=== PATIENT | female | born 1980 | race Hispanic/Latino ===

== ENCOUNTER 2018-09-02 10:13 | Emergency (ER) | payer MEDICAID | END 2018-09-02 11:06 | disposition home or self-care (01) | LOC: EDH 10:13 | DX: Z00.00 Encounter for general adult medical examination without abnormal findings (principal); Z98.51 Tubal ligation status; Z98.890 Other specified postprocedural states | CPT/HCPCS: 99281 ==

== ENCOUNTER 2021-12-28 18:15 | Emergency (ER) | payer MEDICAID ==
[~2021-12-28] VITALS: Ht 157.5 cm; Wt 72.6 kg
[2021-12-28 18:42] LABS: BASOPHILS % (AUTO) 0.6 % (0.0-5.0); EOSINOPHILS % (AUTO) 1.2 % (0.0-8.0); HEMATOCRIT 39.1 % (36-48); LYMPHOCYTES % (AUTO) 39.1 % (21.0-51.0); MEAN CORPUSCULAR HEMOGLOBIN 29.8 pg (27.0-33.0); MEAN CORPUSCULAR VOLUME 87.5 fL (79-99); MONOCYTES % (AUTO) 7.7 % (3.0-13.0); PLATELET COUNT (AUTO) 341 K/uL (130-400); RED BLOOD CELL COUNT(AUTO) 4.47 MIL/uL (4.00-5.50); RED CELL DISTRIBUTION WIDTH 12.7 % (11.0-15.5); WHITE BLOOD COUNT (AUTO) 9.1 K/uL (4.8-10.8)
[2021-12-28 18:43] LABS: APPEARANCE,URINE Clear (CLEAR); BILIRUBIN,URINE Negative (NEGATIVE); COLOR,URINE Yellow (YELLOW); GLUCOSE, URINE (UA) Negative (NEGATIVE); KETONES,URINE Negative (NEGATIVE); LEUKOCYTE ESTERASE ,URINE Negative (NEGATIVE); NITRATE,URINE Negative (NEGATIVE); OCCULT BLOOD,URINE Negative (NEGATIVE); PROTEIN,URINE Negative (NEGATIVE); UROBILINOGEN,URINE 0.2 mg/dL (0.2-1.0)
[2021-12-28 18:55] LABS: CREATININE 0.7 mg/dL (0.5-1.5); POTASSIUM 3.4 mmol/L (3.5-5.1)
[2021-12-28] MEDS ORDERED: 0.9%NACL 1000ML 1,000 ML IV ONE (19:00)
[2021-12-28 19:13] LABS: ALBUMIN 3.7 g/dL (3.5-5.0); BILIRUBIN,TOTAL 0.5 mg/dL (0.2-1.0); TOTAL PROTEIN, SERUM 7.9 g/dL (6.0-8.3)
[2021-12-28] MEDS ORDERED: KETOROLAC 30MG VIAL (30MG/ML) IVP ONE (20:30)
[2021-12-28] MEDS ORDERED: ACET-2079 PO (21:16)
[2021-12-28] MEDS ORDERED: DOXY-336 PO (21:16)
[2021-12-28] MEDS ORDERED: ONDA4TAB10 PO (21:16)
[2021-12-28] MEDS ORDERED: CEFTRIAXONE 500MG VIAL IV SCH (21:30)
[2021-12-28] MEDS ORDERED: DOXYCYCLINE HYCLATE 100 MG TABLET PO SCH (21:30)
[2021-12-28 21:32] VITALS: BP 107/63
== END 2021-12-28 21:41 | disposition home or self-care (01) ==
LOC: EDH 18:15
DX: N71.9 Inflammatory disease of uterus, unspecified (principal); Z79.1 Long term (current) use of non-steroidal anti-inflammatories (NSAID)
CPT/HCPCS: 36415; 76830; 80053; 81003; 83690; 84702; 85025; 96361; 96374; 96375; 99284; J0696; J1885

== ENCOUNTER 2024-06-18 10:51 | Emergency (ER) | payer MEDICAID, OTHER ==
[~2024-06-18] VITALS: Ht 157.5 cm; Wt 67.6 kg
[~2024-06-18 10:51] MED LIST: ACET-2079 PO; CYCL5TAB3 PO; DOXY100C61 PO; NAPR-1084 PO; ONDA-243 PO
--- NOTE | 2024-06-18 11:13 | ERN ---
ED Note History of Present Illness Stated Complaint: accedental took wrong med Chief Complaint: Other Problems Time Seen by MD: 10:57 Dictation: PATIENT IS A 43-YEAR-OLD FEMALE HERE WITH COMPLAINTS OF FEELING ANXIOUS AFTER SHE TOOK HER SON'S RITALIN LA 30 MG AT 07:30 THIS MORNING. SHE STATES SHE WAS MEDICATED HIM AND MEDICATING HERSELF FOR HER MORNING MEDS, ACCIDENTALLY TRANSPOSED THE TWO MEDICATIONS AND TOOK THE RITALIN. SHE STATES IT WAS PURELY ACCIDENTAL DENIES ANY HOMICIDAL OR SUICIDAL IDEATION. THERE WAS NO CHEST PAIN NO BACK PAIN STATES HER MOUTH FEELS DRY. SPOKE WITH CIERRA AT [facility], DISCUSSED CASE WITH HIM INCLUDING THE VITAL SIGNS. HE SAID THERE IS NO ADMISSIBLE CRITERIA AT THIS TIME AND NO AND HE GO TO REVERSED RITALIN INGESTION. HE STATES IF SHE WOULD HAVE CALLED THE [facility] HE WOULD ADVISED HER TO STAY HOME. Allergies: Coded Allergies: No Known Drug Allergies (Unverified Allergy, Unknown, 12/28/21) Home Meds Active Scripts Cyclobenzaprine HCl (Cyclobenzaprine HCl) 5 Mg Tablet, 5 MG PO nightly for 7 Days, #7 TAB Prov:MONIK MOSQUEDA MD 10/09/22 Naproxen Sodium (Naproxen Cr) 500 Mg Tbmp.24hr, 500 MG PO BID PRN for PAIN LEVEL 1 TO 5 for 7 Days, #14 TAB.SR Prov:MONIK MOSQUEDA MD 10/09/22 Doxycycline Monohydrate (Doxycycline Monohydrate) 100 Mg Capsule, 1 CAP PO BID for 10 Days, #20 CAP 0 Refills Prov:DAMARIS XIAO MD 12/28/21 Ondansetron (Ondansetron Odt) 4 Mg Tab.rapdis, 4 MG PO TIDP PRN for NAUSEA/VOMITING, #12 TAB 0 Refills Prov:DAMARIS XIAO MD 12/28/21 Acetaminophen with Codeine (Acetaminophen-Cod #3 Tablet) 1 Each Tablet, 1 TAB PO Q6H PRN for SEVERE PAIN (7-10), #12 TAB 0 Refills Prov:DAMARIS XIAO MD 12/28/21 Past Medical History Past Medical History: GERD Additional Past Medical Hx: ENDOMETRIOSIS, OVERIAN CYSTS, Surgical History: Hysterectomy Social History: Negative, Other History: Not Applicable RN Note Reviewed/Agreed w/PFSH: Yes Review of System Dictation CONSTITUTIONAL: NEGATIVE EXCEPT FOR HPI ANXIETY HEAD/FACE: NEGATIVE EXCEPT FOR HPI EENT: NEGATIVE EXCEPT FOR HPI DRY MOUTH RESPIRATORY: NEGATIVE EXCEPT FOR HPI GASTROINTESTINAL/ABDOMINAL: NEGATIVE EXCEPT FOR HPI GENITOURINARY: NEGATIVE EXCEPT FOR HPI MUSCULOSKELETAL: NEGATIVE EXCEPT FOR HPI INTEGUMENTARY: NEGATIVE EXCEPT FOR HPI NEUROLOGICAL/PSYCH: NEGATIVE EXCEPT FOR HPI HEMATOLOGIC/LYMPHATIC: NEGATIVE EXCEPT FOR HPI ALL SYSTEMS NEGATIVE, EXCEPT NOTED ABOVE. 13 POINT REVIEW OF SYSTEMS ASSESSED AND ALL NEGATIVE EXCEPT FOR ABOVE. Initial Vital Sign VS Vital Signs Date Time Temp Pulse Resp B/P (MAP) Pulse Ox O2 Delivery O2 Flow Rate FiO2 06/18/24 11:21 98.8 75 20 118/81 100 Room Air* 0 21 Physical Exam Dictation VITAL SIGNS REVIEWED GENERAL APPEARANCE: ALERT, ORIENTED X 3, MILD ANXIETY, WELL DEVELOPED, NOURISHED. HEAD AND FACE: NON-TRAUMATIC. EYES: PERRL, PINK CONJUNCTIVAS, EYELID NO TRAUMA, ANTERIOR CHAMBER WITH ARCUS SENILIS. EARS: PINNAS INTACT AND NO SIGNS OF TRAUMA OR ERYTHEMA EAR CANALS CLEAR AND NO DISCHARGE TM NO ERYTHEMA NOSE: NO DISCHARGE, NO BLEEDING. OROPHARYNX: MOUTH NORMAL, TONGUE PINK, PHARYNX CLEAR,NO ERYTHEMA, TONSILS NO EXUDATES, NO ABSCESSES NOTED, MUCOUS MEMBRANE MOIST NECK: SUPPLE, NON-TENDER, NO THYROMEGALY, NO MASSES, NO JVD, NO BRUITS BREAST:DEFERRED CHEST:NO TENDERNESS, NO CREPITUS, NO PARADOXICAL MOVEMENT, NO RETRACTIONS LUNGS:CLEAR, WELL-VENTILATED, SYMMETRIC, NO RALES, NO WHEEZING, NO RHONCHI, NO STRIDOR, GOOD BREATH SOUNDS BILATERALLY HEART: REGULAR RATE, REGULAR RHYTHM, NO MURMUR, NO GALLOPS VASCULAR: NO PERIPHERAL EDEMA, ABDOMEN: SOFT, POSITIVE BOWEL SOUNDS, NONDISTENDED, NO GUARDING, NONTENDER, NO REBOUND, NO MASSES NO HEPATOMEGALY, NO SPLENOMEGALY, NO PIERRE'S SIGN, NO HERNIAS. RECTAL: DEFERRED GENITAL: DEFERRED NEUROLOGICAL: NORMAL SPEECH, MOTOR FUNCTION INTACT, SENSORY FUNCTION INTACT MUSCULOSKELETAL: NECK NONTENDER, FULL RANGE OF MOTION, BACK NONTENDER, FULL RANGE OF MOTION, EXTREMITIES: NONTENDER, FULL RANGE OF MOTION SKIN: COLOR PINK, DRY, NO TURGOR, NO RASH, NO LACERATIONS, NO ABRASIONS, NO CONTUSIONS. LYMPHATIC: DEFERRED Results (Laboratory/Radiology) Labs Reviewed?: Yes ED Course ED Course Orders Procedure Category Date Status Time Lorazepam 1 Mg PHA 06/18/24 Complete (Ativan) 11:30 Current Medications Medications (Trade) Dose Ordered Sig/Gera Route PRN Reason Start Time Stop Time Status Last Admin Dose Admin Lorazepam (AtiVAN) 1 mg ONCE ONCE PO 06/18/24 11:30 06/18/24 11:31 DC 06/18/24 11:19 Vital Signs Date Time Temp Pulse Resp B/P (MAP) Pulse Ox O2 Delivery O2 Flow Rate FiO2 06/18/24 12:21 98.1 71 18 121/79 100 Room Air* 0 21 06/18/24 11:21 98.8 75 20 118/81 100 Room Air* 0 21 ELEVEN 10, PATIENT WAS REASSURED THAT SHE WILL BE OKAY AND THAT SHE IS HEMODYNAMICALLY STABLE. SHE IS AWARE THAT BECAUSE THE DRUG IS LONG ACTING, SHE COULD HAVE THE EFFECTS OF THE DRUG FOR SEVERAL HOURS WE WILL PROVIDE AN ATIVAN1 MG P.O. NOW FOR ANXIETY, HER WILL PICK HER UP AND TAKE HER HOME. SHE WAS TOLD TO FOLLOW UP WITH HER PRIMARY CARE DOCTOR IN THE NEXT 1-2 DAYS FOR MANAGEMENT Medical Decision Making MDM MEDICAL DISCHARGE MAKING BASED ON NOTIFYING [facility] OF ACCIDENTAL INGESTION. NO INTERVENTIONS REQUIRED AT THIS TIME. PATIENT GIVEN ATIVAN1 MG P.O. TO [facility]. INFORMED TO FOLLOW UP WITH HER PRIMARY CARE DOCTOR DX & DISP Disposition: Discharge Departure Impression: Primary Impression: Accidental drug ingestion Condition: Stable Additional Instructions: FOLLOW-UP WITH PRIMARY CARE PROVIDER IN 1 TO 2 DAYS. TAKE MEDICATIONS DIRECTED HERE IN THE EMERGENCY ROOM. OKAY TO CONTINUE HOME MEDICATIONS UNLESS OTHERWISE DISCUSSED DURING YOUR VISIT IN THE EMERGENCY ROOM TODAY. RETURN TO YOUR NEAREST EMERGENCY ROOM IF SYMPTOMS WORSEN OR IF THERE IS NO IMPROVEMENT. CALL 911 IF YOU NEED IMMEDIATE ASSISTANCE. TAKE TYLENOL OR MOTRIN AWMA-BOG-OXMCKIT NEEDED AND IF NO CONTRAINDICATIONS ARE PRESENT. INCREASE ORAL HYDRATION. A WOUND CULTURE OR URINE CULTURE WAS ORDERED HERE IN THE EMERGENCY ROOM DEPARTMENT PLEASE FOLLOW-UP WITH PRIMARY CARE PROVIDER AND ADVISE THEM TO GET REPEAT PORTS FROM OUR FACILITY. IF YOU HAD ANY MISBAH WRAP/SPLINTS THAT WERE APPLIED HERE, PLEASE DO NOT REMOVE THEM UNTIL YOU SEE YOUR PRIMARY CARE OR SPECIALTY. DIET AND ACTIVITY TOLERATED, FOLLOW UP WITH YOUR PRIMARY CARE DOCTOR GUILHERME BRAUN. Referrals: BRENDA ADAMS MD (PCP) Time of Disposition: 11:12 I have reviewed the case, and I agree with, Diagnosis and Plan I performed this substantive portion of this visit. I have reviewed and personally made and approve the management plan that is documented in the note by myself or the KAMI. I acknowledge full responsibility for the patient's management plan. KARINA VALDEZ NP Jun 18, 2024 11:13 RENA PANTOJA MD Jun 18, 2024 16:27
[2024-06-18] MEDS: LORazepam 1 MG TABLET PO ONE (11:19)
[2024-06-18 12:21] VITALS: BP 121/79; PULSE 71; RESP 18; TEMP 98.1; O2SAT 100
== END 2024-06-18 12:28 | disposition home or self-care (01) ==
LOC: EDH 10:51
DX: T43.631A Poisoning by methylphenidate, accidental (unintentional), initial encounter (principal); K21.9 Gastro-esophageal reflux disease without esophagitis; Z90.710 Acquired absence of both cervix and uterus; Y92.89 Other specified places as the place of occurrence of the external cause
CPT/HCPCS: 99283

== ENCOUNTER 2024-07-14 22:49 | Emergency (ER) | payer OTHER ==
[~2024-07-14] VITALS: Ht 157.5 cm; Wt 67.1 kg
[2024-07-14 22:50] VITALS: TEMP 98.1
[2024-07-14 23:25] LABS: APPEARANCE,URINE CLEAR (CLEAR); BILIRUBIN,URINE NEGATIVE (NEGATIVE); COLOR,URINE LIGHT-YELLOW (YELLOW); GLUCOSE, URINE (UA) NEGATIVE (NEGATIVE); KETONES,URINE NEGATIVE (NEGATIVE); LEUKOCYTE ESTERASE ,URINE NEGATIVE Leu/uL (NEGATIVE); NITRATE,URINE NEGATIVE (NEGATIVE); OCCULT BLOOD,URINE NEGATIVE (NEGATIVE); PROTEIN,URINE NEGATIVE (NEGATIVE); UROBILINOGEN,URINE 0.2 mg/dL (0.2-1.0)
[2024-07-14 23:29] LABS: ADD UA MICROSCOPIC NO
[2024-07-14 23:40] VITALS: BP 113/63; PULSE 71; RESP 18; O2SAT 97
[2024-07-14] MEDS: morPHINE 4 MG SYG IVP ONE (23:40)
[2024-07-14] MEDS: ondanSETRON 4MG INJ IVP ONE (23:40)
[2024-07-14 23:49] LABS: BASOPHILS # (AUTO) 0.05 K/uL (0.00-0.20); BASOPHILS % (AUTO) 0.4 % (0.0-5.0); EOSINOPHILS # (AUTO) 0.14 K/uL (0.00-0.70); EOSINOPHILS % (AUTO) 1.2 % (0.0-8.0); HEMATOCRIT 35.9 % (36-48); IMMATURE GRANULOCYTE ABSOLUTE 0.04 K/uL (0-1); LYMPHOCYTES # (AUTO) 3.2 K/uL (1.0-4.8); LYMPHOCYTES % (AUTO) 28.3 % (21.0-51.0); MEAN CORPUSCULAR HGB CONC 34.8 g/dL (32.0-36.0); MEAN CORPUSCULAR VOLUME 89.1 fL (79-99); MONOCYTES # (AUTO) 0.9 K/uL (0.1-1.0); MONOCYTES % (AUTO) 7.7 % (3.0-13.0); PLATELET COUNT (AUTO) 309 K/uL (130-400); RED BLOOD CELL COUNT(AUTO) 4.03 MIL/uL (4.00-5.50); RED CELL DISTRIBUTION WIDTH 12.3 % (11.0-15.5); WHITE BLOOD COUNT (AUTO) 11.4 K/uL (4.8-10.8)
[2024-07-15 00:06] LABS: CREATININE 0.8 mg/dL (0.5-1.0); POTASSIUM 3.6 mmol/L (3.5-5.1)
[2024-07-15] MEDS ORDERED: IOHEXOL-350 75 ML VIAL IV ONE (01:04)
[2024-07-15] MEDS: 0.9%NACL 1000ML 1,000 ML IV ONE (01:10)
--- NOTE | 2024-07-15 01:35 | ERN ---
ED Note History of Present Illness Stated Complaint: PELVIC PAIN Chief Complaint: Pelvic Pain Time Seen by MD: 22:52 Time Seen by Midlevel: 22:25 Dictation: The patient is a 43-year-old female with a history of hysterectomy, for right ovarian torsion who presents to the emergency department with complaints of right lower abdominal pain associated with some nausea onset a 830 p.m.. Patient denies any fevers, diarrhea. Allergies: Coded Allergies: No Known Drug Allergies (Unverified Allergy, Unknown, 12/28/21) Home Meds Active Scripts Cyclobenzaprine HCl (Cyclobenzaprine HCl) 5 Mg Tablet, 5 MG PO nightly for 7 Days, #7 TAB Prov:MONIK MOSQUEDA MD 10/09/22 Naproxen Sodium (Naproxen Cr) 500 Mg Tbmp.24hr, 500 MG PO BID PRN for PAIN LEVEL 1 TO 5 for 7 Days, #14 TAB.SR Prov:MONIK MOSQUEDA MD 10/09/22 Doxycycline Monohydrate (Doxycycline Monohydrate) 100 Mg Capsule, 1 CAP PO BID for 10 Days, #20 CAP 0 Refills Prov:DAMARIS XIAO MD 12/28/21 Ondansetron (Ondansetron Odt) 4 Mg Tab.rapdis, 4 MG PO TIDP PRN for NAUSEA/VOMITING, #12 TAB 0 Refills Prov:DAMARIS XIAO MD 12/28/21 Acetaminophen with Codeine (Acetaminophen-Cod #3 Tablet) 1 Each Tablet, 1 TAB PO Q6H PRN for SEVERE PAIN (7-10), #12 TAB 0 Refills Prov:DAMARIS XIAO MD 12/28/21 Past Medical History Past Medical History: Endometriosis, Other Additional Past Medical Hx: TORSION Surgical History: Hysterectomy Social History: Negative, Other History: Not Applicable RN Note Reviewed/Agreed w/PFSH: Yes Review of System Dictation Constitutional: Negative for fever,chills, and weight loss Eyes: Negative for injury, pain,redness, and discharge ENT: Negative for injury,pain or swelling Cardiovascular: Negative for chest pain, palpitations, and edema Respiratory: Negative for shortness of breath, cough, and wheezing, Abdomen/GI: Negative for vomiting, diarrhea, and constipation positive for right lower abdominal pain, nausea Back: Negative for injury and pain : Negative for injury, bleeding and discharge MS/Extremity: Negative for injury and deformity Skin: Negative for rash, and discoloration Neuro: Negative for headache, weakness, numbness, tingling, and seizure Psych: Negative for suicide ideation, homicidal ideation, and hallucinations Initial Vital Sign VS Vital Signs Date Time Temp Pulse Resp B/P (MAP) Pulse Ox O2 Delivery O2 Flow Rate FiO2 07/14/24 22:50 98.1 72 16 120/73 98 0 07/14/24 23:40 Room Air* 21 Physical Exam Dictation Vital Signs reviewed General Appearance: Alert, oriented x 3, no acute distress, well developed, nour ished. Head and Face: non-traumatic. Eyes: PERRL, pink conjunctivas, eyelid no trauma, anterior chamber with arcus senilis. Ears: Pinnas intact and no signs of trauma or erythema ear canals clear and no discharge TM no erythema Nose: No discharge, no bleeding. Oropharynx: Mouth normal, tongue pink. pharynx clear,no erythema, tonsils no exudates, no abscesses noted, mucous memb sandi moist Neck: Supple, non-tender, no thyromegaly, no masses, no JVD, no bruits Breast:Deferred Chest:No tenderness, no crepitus, no paradoxical movement, no retractions Lungs:Clear, well-ventilated, symmetric, no rales, no wheezing, no rhonchi, no s tridor, good breath sounds bilaterally Heart: Regular rate, regular rhythm, no murmur, no gallops Vascular: no peripheral edema, Abdomen: Soft, positive bowel sounds, nondistended, no guarding, nontender, no rebound, no masses no hepatomegaly, no splenomegaly, no Fonseca's sign, no hernias. Rectal: Deferred Genital: Deferred Neurological: Normal speech, motor function intact, sensory function intact Musculoskeletal: Neck nontender, full range of motion, back nontender, full range of motion, Extremities: nontender, full range of motion Skin: Color pink, dry, no turgor, no rash, no lacerations, no abrasions, no contusions. Lymphatic: Deferred Results (Laboratory/Radiology) Laboratory/Radiology Laboratory Tests Test 07/14/24 23:08 07/14/24 23:34 Urine Color LIGHT-YELLOW (YELLOW) Urine Appearance CLEAR (CLEAR) Urine pH 7.0 (5.0-8.0) Urine Specific [place] 1.015 (1.001-1.031) Urine Protein NEGATIVE mg/dL (NEGATIVE) Urine Glucose (UA) NEGATIVE mg/dL (NEGATIVE) Urine Ketones NEGATIVE mg/dL (NEGATIVE) Urine Occult Blood NEGATIVE (NEGATIVE) Urine Nitrate NEGATIVE (NEGATIVE) Urine Bilirubin NEGATIVE mg/dL (NEGATIVE) Urine Urobilinogen 0.2 mg/dL (0.2-1.0) Urine Leukocyte Esterase NEGATIVE [place]/uL White Blood Count 11.4 K/uL (4.8-10.8) H Red Blood Count 4.03 MIL/uL (4.00-5.50) Hemoglobin 12.5 g/dL (12.0-16.0) Hematocrit 35.9 % (36-48) L Mean Corpuscular Volume 89.1 fL (79-99) Mean Corpuscular Hemoglobin 31.0 pg (27.0-33.0) Mean Corpuscular Hemoglobin Concent 34.8 g/dL (32.0-36.0) Red Cell Distribution Width 12.3 % (11.0-15.5) Platelet Count 309 K/uL (130-400) Mean Platelet Volume 9.7 fL (7.5-10.5) Immature Granulocyte % (Auto) 0.4 % (0-1) Neutrophils (%) (Auto) 62.0 % (40.0-77.0) Lymphocytes (%) (Auto) 28.3 % (21.0-51.0) Monocytes (%) (Auto) 7.7 % (3.0-13.0) Eosinophils (%) (Auto) 1.2 % (0.0-8.0) Basophils (%) (Auto) 0.4 % (0.0-5.0) Neutrophils # (Auto) 7.0 K/uL (1.8-7.7) Lymphocytes # (Auto) 3.2 K/uL (1.0-4.8) Monocytes # (Auto) 0.9 K/uL (0.1-1.0) Eosinophils # (Auto) 0.14 K/uL (0.00-0.70) Basophils # (Auto) 0.05 K/uL (0.00-0.20) Absolute Immature Granulocyte (auto 0.04 K/uL (0-1) Nucleated Red Blood Cells 0.0 % (0.0-0.19) Sodium Level 139 mmol/L (136-145) Potassium Level 3.6 mmol/L (3.5-5.1) Chloride Level 105 mmol/L (101-111) Carbon Dioxide Level 26 mmol/L (21-32) Blood Urea Nitrogen 12 mg/dL (7-18) Creatinine 0.8 mg/dL (0.5-1.0) Glomerular Filtration Rate Calc 93 mL/min (>90) Random Glucose 98 mg/dL (70-105) Total Calcium 8.3 mg/dL (8.5-10.1) L Labs Reviewed?: Yes ED Course ED Course Orders Procedure Category Date Status Time Cbc With Differential LAB 07/14/24 Complete 23:09 Urinalysis Profile LAB 07/14/24 Complete 23:09 Basic Metabolic Panel LAB 07/14/24 Complete 23:09 Us Pelvic Non-Ob Comp US 07/14/24 Taken 23:27 Ondansetron 4mg Inj PHA 07/14/24 Complete (Zofran 4mg Inj) 23:30 Morphine 4mg Syg PHA 07/14/24 Complete (Morphine 4mg Syg) 23:30 0.9%Nacl 1000ml (Ns PHA 07/15/24 Complete 1000ml) 01:00 Ct Abdomen/Pelvis CT 07/15/24 Taken W/Contrast 00:54 Iohexol (Omnipaque) PHA 07/15/24 Complete 01:04 Current Medications Medications (Trade) Dose Ordered Sig/Gera Route PRN Reason Start Time Stop Time Status Last Admin Dose Admin Iohexol (Omnipaque) 75 ml STK-MED ONCE IV 07/15/24 01:04 07/15/24 01:05 DC Morphine Sulfate (morPHINE 4MG SYG) 4 mg ONCE ONCE IVP 07/14/24 23:30 07/14/24 23:31 DC 07/14/24 23:40 Ondansetron HCl (zoFRAN 4MG INJ) 4 mg ONCE ONCE IVP 07/14/24 23:30 07/14/24 23:31 DC 07/14/24 23:40 Sodium Chloride 1,000 ml @ 0 mls/hr ONCE ONCE IV 07/15/24 01:00 07/15/24 01:01 DC 07/15/24 01:10 Vital Signs Date Time Temp Pulse Resp B/P (MAP) Pulse Ox O2 Delivery O2 Flow Rate FiO2 07/14/24 23:40 71 18 113/63 97 Room Air* 0 21 07/14/24 22:50 98.1 72 16 120/73 98 0 Medical Decision Making MDM The patient is a 43-year-old female with a history of hysterectomy, for right ovarian torsion who presents to the emergency department with complaints of right lower abdominal pain associated with some nausea onset a 830 p.m.. Patient denies any fevers, diarrhea. CBC showed mild leukocytosis, no anemia, chemistry showed no electrolyte imbalance,urinalysis unremarkable, ct abdomen showed a no significant findings. Patient in no distress, we will be discharged to follow up with OBGYN. Differential diagnosis: Electrolyte imbalance, UTI, appendicitis, ovarian cyst Need for hospitalization: Patient does not meet criteria for hospitalization. There are no social concerns with this patient. DX & DISP Disposition: Discharge Departure Impression: Primary Impression: Pelvic pain Condition: Stable Additional Instructions: Please follow up with your PCP as soon as possible. Please return to ER if symptoms worsen. FOLLOW-UP WITH PRIMARY CARE PROVIDER IN 1 TO 2 DAYS. TAKE MEDICATIONS DIRECTED HERE IN THE EMERGENCY ROOM. OKAY TO CONTINUE HOME MEDICATIONS UNLESS OTHERWISE DISCUSSED DURING YOUR VISIT IN THE EMERGENCY ROOM TODAY. RETURN TO YOUR NEAREST EMERGENCY ROOM IF SYMPTOMS WORSEN OR IF THERE IS NO IMPROVEMENT. CALL 911 IF YOU NEED IMMEDIATE ASSISTANCE. TAKE TYLENOL OR MOTRIN [id number] NEEDED AND IF NO CONTRAINDICATIONS ARE PRESENT. INCREASE ORAL HYDRATION. A WOUND CULTURE OR URINE CULTURE WAS ORDERED HERE IN THE EMERGENCY ROOM DEPARTMENT PLEASE FOLLOW-UP WITH PRIMARY CARE PROVIDER AND ADVISE THEM TO GET REPEAT PORTS FROM OUR FACILITY. IF YOU HAD ANY MISBAH WRAP/SPLINTS THAT WERE APPLIED HERE, PLEASE DO NOT REMOVE THEM UNTIL YOU SEE YOUR PRIMARY CARE OR SPECIALTY. Referrals: JONATHON ISBELL MD (PCP) Time of Disposition: 03:16 I have reviewed the case, and I agree with, Diagnosis and Plan VICKIE MUÑOZ Jul 15, 2024 01:35
--- NOTE | 2024-07-15 08:27 | HMCIMG ---
US PELVIC NON-OB COMP REASON: right side pelvic pain COMPARISON: None TECHNIQUE: Routine abdomen sonogram was performed. FINDINGS: Uterus is absent. Left ovary is 2 x 1 x 2 cm. Right ovary was not separately and may be absent. There are no focal fluid collections. There are no focal adnexal masses. There is no free fluid in the cul-de-sac. IMPRESSION: 1. Absent uterus and right ovary. 2. No acute finding.
--- NOTE | 2024-07-15 08:29 | HMCIMG ---
CT ABDOMEN/PELVIS W/CONTRAST REASON: rigth abd pain COMPARISON: None. TECHNIQUE: Images are obtained from lung bases to the symphysis pubis following IV contrast. FINDINGS: Lung bases are clear. There are no focal liver lesions. There are normal-appearing kidneys.. Spleen and pancreas appear unremarkable. The gallbladder appears normal as well. Bowel loops appear unremarkable. This includes normal appearance of the appendix There is no evidence of free fluid or intraperitoneal air. There are no focal fluid collections. Aorta and retroperitoneum appear normal as do pelvic soft tissue structures. The anterior abdominal wall is intact. Osseous structures appear unremarkable. IMPRESSION: 1. Negative postcontrast CT abdomen and pelvis. CT was performed with one or more following dose reduction techniques: automated exposure control, adjustment of the mA and kv according to patient's size, or use of a iterative reconstruction technique.
== END 2024-07-15 03:28 | disposition home or self-care (01) ==
LOC: EDH 22:49
DX: R10.2 Pelvic and perineal pain (principal); Z79.899 Other long term (current) drug therapy; Z90.49 Acquired absence of other specified parts of digestive tract
CPT/HCPCS: 99285; 96374; 76856; 96375; 80048; 85025; 81003; 36415; 74177; J2405; J2270; J7030; Q9967

== ENCOUNTER → 2024-08-29 | Outpatient (CLI) | payer OTHER ==
--- NOTE | 2024-08-29 12:29 | HMCIMG ---
CHEST 2VWS HISTORY: Abdominal pain COMPARISON: 10/09/2022 FINDINGS: Frontal and lateral projections of the chest were obtained. There is no acute pulmonary infiltrates or failure. The heart is not enlarged. Prominent interstitial markings are seen. Mild degenerative changes are seen IMPRESSION: 1. No acute pulmonary infiltrates.
== END | disposition home or self-care (01) ==
LOC: RAH 11:25
PROVIDERS: ATTEND Clinical Nurse Specialist Family Health
DX: R10.10 Upper abdominal pain, unspecified (principal); M47.819 Spondylosis without myelopathy or radiculopathy, site unspecified
CPT/HCPCS: 71046

== ENCOUNTER → 2024-11-04 | Outpatient (CLI) | payer OTHER ==
[~2024-11-04] MED LIST changes: +DOXY-466 PO; -DOXY100C61 PO
== END | disposition home or self-care (01) ==
LOC: LAB 11:02
PROVIDERS: ATTEND Nurse Practitioner Family
DX: R53.83 Other fatigue (principal); R68.82 Decreased libido; N89.8 Other specified noninflammatory disorders of vagina
CPT/HCPCS: 36415; 82670; 83001; 84144; 84402; 84403; 84439; 84443

== ENCOUNTER → 2025-01-26 | Outpatient (CLI) | payer OTHER ==
[2025-01-26 12:35] LABS: IMMATURE GRANULOCYTE ABSOLUTE 0.02 K/uL (0-1); NUCLEATED RED BLOOD CELLS 0.0 % (0.0-0.19); PLATELET COUNT (AUTO) 368 K/uL (130-400); RED BLOOD CELL COUNT(AUTO) 4.35 MIL/uL (4.00-5.50); RED CELL DISTRIBUTION WIDTH 12.5 % (11.0-15.5); WHITE BLOOD COUNT (AUTO) 6.9 K/uL (4.8-10.8)
[2025-01-26 12:59] LABS: ASPARTATE AMINOTRANSFERASE 21.0 U/L (10-37); CREATININE 0.7 mg/dL (0.5-1.0); GLOMERULAR FILTR. RATE CALC 108.0 mL/min (>90); GLUCOSE,RANDOM 97.0 mg/dL (70-105); LDL DIRECT 117.0 mg/dL (0-99); SODIUM SERUM 139.0 mmol/L (136-145); TOTAL PROTEIN, SERUM 8.0 g/dL (6.0-8.3); UREA NITROGEN, BLOOD 14.0 mg/dL (7-18)
== END | disposition home or self-care (01) ==
LOC: LAB 11:48
PROVIDERS: ATTEND Internal Medicine
DX: K76.0 Fatty (change of) liver, not elsewhere classified (principal); E78.2 Mixed hyperlipidemia; E22.1 Hyperprolactinemia; R94.5 Abnormal results of liver function studies; F32.0 Major depressive disorder, single episode, mild; G47.00 Insomnia, unspecified; F41.1 Generalized anxiety disorder
CPT/HCPCS: 36415; 80053; 80061; 84146; 84439; 84443; 85025

== ENCOUNTER → 2025-02-02 | Outpatient (CLI) | payer OTHER ==
--- NOTE | 2025-02-02 16:52 | HMCIMG ---
Exam: Abdominal Ultrasound Technique: Grayscale and color Doppler imaging was performed. Static images were obtained. History: Right upper quadrant pain Findings: The liver is normal in contour. It is enlarged. It measures 19.8 cm in length. There is diffuse abnormal increased echogencity throughout. Hepatopetal flow is demonstrated within the portal vein. No gallstones. No pericholecystic fluid. There is no extrahepatic ductal dilatation. The common duct is 2.0 mm in size. The tail of the pancreas could not be visualized. The remainder of the pancreas is normal. The right kidney is 10.0 cm in length. The left kidney is 10.1 cm in length. No hydronephrosis, mass, nephrolithiasis or sonido-nephric abnormality is delineated. The spleen is normal in echotexture and size at 9.2 cm in length. The abdominal aorta is normal in AP caliber measuring cm. The visualized portions of the IVC appear patent. No free fluid is seen within the upper abdomen. IMPRESSION: 1. Hepatomegaly with diffuse increased echogenicity, compatible with fatty liver. 2. Otherwise normal abdominal ultrasound. /[place]
== END | disposition home or self-care (01) ==
LOC: RAH 07:47
PROVIDERS: ATTEND Internal Medicine Gastroenterology
DX: R16.0 Hepatomegaly, not elsewhere classified (principal); R10.11 Right upper quadrant pain
CPT/HCPCS: 76700

== ENCOUNTER 2025-03-02 10:41 | Emergency (ER) | payer OTHER ==
[~2025-03-02] VITALS: Ht 157.5 cm; Wt 72.6 kg
--- NOTE | 2025-03-02 10:58 | ERN ---
ED Note History of Present Illness Stated Complaint: ABDOMINAL PAIN Chief Complaint: Abdominal Pain Time Seen by MD: 10:44 Time Seen by Midlevel: 10:48 Dictation: 44-year-old female with a history of endometriosis, any right oophorectomy, and a hysterectomy coming in complaining of lower abdominal pain. Patient states started like an achy yesterday, and today while she was at work she felt some sharp pain and decided to come to the hospital and be evaluated. Patient also mentioned she has had some nausea and dysuria since Sunday. Denies any fever, chest pain, chest discomfort, shortness a breath, vaginal bleeding, vaginal discharge. Allergies: Coded Allergies: iohexol (Unverified Allergy, Unknown, 10/21/24) HIVES, RASH, ITCHING Home Meds Active Scripts Cyclobenzaprine HCl (Cyclobenzaprine HCl) 5 Mg Tablet, 5 MG PO nightly for 7 Days, #7 TAB Prov:MONIK MOSQUEDA MD 10/09/22 Naproxen Sodium (Naproxen Cr) 500 Mg Tbmp.24hr, 500 MG PO BID PRN for PAIN LEVEL 1 TO 5 for 7 Days, #14 TAB.SR Prov:MONIK MOSQUEDA MD 10/09/22 Doxycycline Monohydrate (Doxycycline Monohydrate) 100 Mg Capsule, 1 CAP PO BID for 10 Days, #20 CAP 0 Refills Prov:DAMARIS XIAO MD 12/28/21 Ondansetron (Ondansetron Odt) 4 Mg Tab.rapdis, 4 MG PO TIDP PRN for NAUSEA/VOMITING, #12 TAB 0 Refills Prov:DAMARIS XIAO MD 12/28/21 Acetaminophen with Codeine (Acetaminophen-Cod #3 Tablet) 1 Each Tablet, 1 TAB PO Q6H PRN for SEVERE PAIN (7-10), #12 TAB 0 Refills Prov:DAMARIS XIAO MD 12/28/21 Past Medical History Past Medical History: Endometriosis, GERD Additional Past Medical Hx: HX OF LYME DISEASE Surgical History: Hysterectomy, Other, Surgical History Other: TUBAL LIGATION Social History: Negative, Other History: Not Applicable Review of System Dictation Constitutional: Negative for fever,chills, and weight loss Eyes: Negative for injury, pain,redness, and discharge ENT: Negative for injury,pain or swelling Cardiovascular: Negative for chest pain, palpitations, and edema Respiratory: Negative for shortness of breath, cough, and wheezing, Abdomen/GI: Complaining of lower abdominal pain Back: Negative for injury and pain : Negative for injury, bleeding and discharge MS/Extremity: Negative for injury and deformity Skin: Negative for rash, and discoloration Neuro: Negative for headache, weakness, numbness, tingling, and seizure Psych: Negative for suicide ideation, homicidal ideation, and hallucinations Review of Systems: was completed Initial Vital Sign VS Vital Signs Date Time Temp Pulse Resp B/P (MAP) Pulse Ox O2 Delivery O2 Flow Rate FiO2 03/02/25 10:43 98.2 66 19 116/77 99 Room Air 0 03/02/25 10:49 21 Physical Exam Dictation General: awake, alert, NAD Head/Face: Normocephalic, atraumatic Eyes: PERRL, EOMI, vision at baseline ENT: oral cavity clear, TMs clear, no signs of infection Neck: Trachea midline, supple, no nuchal rigidity Cardiovascular: RRR, normal S1/S2, No MRGs, no JVD Respiratory: CTAB, no respiratory distress, No rales or wheezes Abdomen: Soft, non-tender, non-distended, normal bowel sounds, no guarding or rebound. Skin: Warm, dry, normal turgor, no rash MS/Extremity: Pulses equal, no cyanosis, neurovascular intact, FROM Neuro: COAx4, GCS 15, strength 5/5, CN 2-12 intact, normal cerebellar exam, normal gait, Psych: Normal behavior, mood, and affect normal Results (Laboratory/Radiology) Laboratory/Radiology Laboratory Tests Test 03/02/25 11:09 03/02/25 11:22 White Blood Count 6.9 K/uL (4.8-10.8) Red Blood Count 4.08 MIL/uL (4.00-5.50) Hemoglobin 12.7 g/dL (12.0-16.0) Hematocrit 36.2 % (36-48) Mean Corpuscular Volume 88.7 fL (79-99) Mean Corpuscular Hemoglobin 31.1 pg (27.0-33.0) Mean Corpuscular Hemoglobin Concent 35.1 g/dL (32.0-36.0) Red Cell Distribution Width 12.1 % (11.0-15.5) Platelet Count 304 K/uL (130-400) Mean Platelet Volume 9.6 fL (7.5-10.5) Immature Granulocyte % (Auto) 0.3 % (0-1) Neutrophils (%) (Auto) 50.6 % (40.0-77.0) Lymphocytes (%) (Auto) 40.9 % (21.0-51.0) Monocytes (%) (Auto) 7.0 % (3.0-13.0) Eosinophils (%) (Auto) 0.6 % (0.0-8.0) Basophils (%) (Auto) 0.6 % (0.0-5.0) Neutrophils # (Auto) 3.5 K/uL (1.8-7.7) Lymphocytes # (Auto) 2.8 K/uL (1.0-4.8) Monocytes # (Auto) 0.5 K/uL (0.1-1.0) Eosinophils # (Auto) 0.04 K/uL (0.00-0.70) Basophils # (Auto) 0.04 K/uL (0.00-0.20) Absolute Immature Granulocyte (auto 0.02 K/uL (0-1) Nucleated Red Blood Cells 0.0 % (0.0-0.19) Sodium Level 137 mmol/L (136-145) Potassium Level 3.5 mmol/L (3.5-5.1) Chloride Level 101 mmol/L (101-111) Carbon Dioxide Level 27 mmol/L (21-32) Blood Urea Nitrogen 12 mg/dL (7-18) Creatinine 0.6 mg/dL (0.5-1.0) Glomerular Filtration Rate Calc 112 mL/min (>90) Random Glucose 92 mg/dL (70-105) Total Calcium 9.0 mg/dL (8.5-10.1) Urine Color COLORLESS (YELLOW) Urine Appearance CLEAR (CLEAR) Urine pH 7.5 (5.0-8.0) Urine Specific [place] 1.006 (1.001-1.031) Urine Protein NEGATIVE mg/dL (NEGATIVE) Urine Glucose (UA) NEGATIVE mg/dL (NEGATIVE) Urine Ketones NEGATIVE mg/dL (NEGATIVE) Urine Occult Blood NEGATIVE (NEGATIVE) Urine Nitrate NEGATIVE (NEGATIVE) Urine Bilirubin NEGATIVE mg/dL (NEGATIVE) Urine Urobilinogen 0.2 mg/dL (0.2-1.0) Urine Leukocyte Esterase NEGATIVE [place]/uL Labs Reviewed?: Yes Ultrasound Comment: [facility] [address] [place] [address] IMAGING REPORT Signed PATIENT: CRYSTAL KHAN MR#: [id number] : 1980 SEX: F AGE: 44 LOCATION: [facility] ORDER 1055 STATUS: REG ER REPORT#: [id number] SERVICE 1053 REASON: left pelvic pain ORDERING PHYSICIAN: SHEFALI KHAN NP PROCEDURE: PELVCOMP - US PELVIC NON-OB COMP EXAM: US Pelvis, Complete Transvaginal COMPARISON: US Pelvis, Complete Transvaginal Dated 07/15/24 CLINICAL HISTORY: Left pelvic pain. TECHNIQUE: Transvaginal pelvic ultrasound (complete) with image documentation. FINDINGS: ENDOMETRIUM: An ill-defined mixed echogenicity complex area is seen in the uterus. Possibility of regrowth or recurrence cannot be ruled out. UTERUS/CERVIX: Partial hysterectomy status. RIGHT OVARY: Not visualized (post-oophorectomy status). LEFT OVARY: Normal Doppler flow. No abnormal mass. FREE FLUID: No free fluid. IMPRESSION: 1. Ill-defined mixed echogenicity complex area in the uterus, suspicious for regrowth/recurrence in the setting of partial hysterectomy. Recommend contrast-enhanced MRI of the pelvis for further evaluation. /[place] DICTATED BY: KELLY TERAN Jr., MD DATE: 03/02/25 1347 ELECTRONICALLY SIGNED BY: KELLY TERAN Jr., MD DATE: 03/02/[address] Scan Comment: [facility] [address] [place] [address] IMAGING REPORT Signed PATIENT: CRYSTAL KHAN MR#: [id number] : 1980 SEX: F AGE: 44 LOCATION: [facility] ORDER 1215 STATUS: REG ER REPORT#: [id number] SERVICE 1214 REASON: abnormal us ORDERING PHYSICIAN: SHEFALI KHAN NP PROCEDURE: ABD PEL WO - CT ABDOMEN/PELVIS W/O CONTRAST EXAM: CT Abdomen and Pelvis Without IV Contrast. CLINICAL HISTORY: Left pelvic pain TECHNIQUE: Axial computed tomography images of the abdomen and pelvis without intravenous contrast. CONTRAST: No IV contrast. COMPARISON: CT Abdomen and Pelvis With IV Contrast dated 07/15/2024. FINDINGS: LUNG BASES: The lung bases appear clear. No pleural effusions are seen. LIVER: Liver is enlarged in size, measuring 19.4 cm. No focal lesion is seen. GALLBLADDER AND BILE DUCTS: The gallbladder appears within normal limits. No radioopaque gallstones are seen. No biliary ductal dilatation is evident. PANCREAS: Unremarkable. SPLEEN: Unremarkable. ADRENAL GLANDS: Unremarkable. KIDNEYS, URETERS, AND BLADDER: The kidneys appear within normal limits. There is no hydronephrosis or hydroureter. No urinary calculi are seen. STOMACH AND BOWEL: Unremarkable appearance of the stomach and bowel. No evidence of bowel obstruction. No evidence suggesting enteritis or colitis. APPENDIX: No evidence of acute appendicitis on CT examination. PERITONEUM: No free fluid. No free air. LYMPH NODES: No lymphadenopathy is evident. REPRODUCTIVE: Post partial hysterectomy status. Right ovary is not seen (post oophorectomy status). Left ovary and adnexa appear normal. There is ill-defined soft tissue hypertrophy at the post-hysterectomy site, which has slightly increased compared to the previous scan dated 07/15/24. This may be further characterized with contrast-enhanced MR imaging of the pelvis. VASCULATURE: No evidence of abdominal aortic aneurysm. BONES: No aggressive appearing osseous lesion. No acute osseous pathology evident. IMPRESSION: 1. Ill-defined soft tissue hypertrophy at post-hysterectomy site, slightly increased since 07/15/24, concerning for possible recurrence. Recommend contrast-enhanced MRI of the pelvis for further evaluation. 2. Hepatomegaly with liver span of 19.4 cm. 3. No acute pathology appreciated within the abdomen or pelvis. /[place] DICTATED BY: KELLY TERAN Jr., MD DATE: 03/02/25 1442 ELECTRONICALLY SIGNED BY: KELLY TERAN Jr., MD DATE: 03/02/25 144 ED Course ED Course Orders Procedure Category Date Status Time Cbc With Differential LAB 03/02/25 Complete 10:54 Basic Metabolic Panel LAB 03/02/25 Complete 10:54 Urinalysis Profile LAB 03/02/25 Complete 10:54 Us Pelvic Non-Ob Comp US 03/02/25 Resulted 10:54 0.9%Nacl 1000ml (Ns PHA 03/02/25 Complete 1000ml) 10:54 Ondansetron 4mg Inj PHA 03/02/25 Complete (Zofran 4mg Inj) 10:54 Famotidine 20mg Vial PHA 03/02/25 Complete (Pepcid 20mg Vial) 10:54 Ketorolac PHA 03/02/25 Complete Tromethamine 15mg/Ml 10:54 Ct Abdomen/Pelvis W/O CT 03/02/25 Resulted Contrast 12:14 Current Medications Medications (Trade) Dose Ordered Sig/Gera Route PRN Reason Start Time Stop Time Status Last Admin Dose Admin Famotidine (Pepcid 20mg Vial) 20 mg ONCE STAT IV 03/02/25 10:54 03/02/25 11:00 DC 03/02/25 11:18 Ketorolac Tromethamine (toRADol) 15 mg ONCE STAT IV 03/02/25 10:54 03/02/25 11:00 DC 03/02/25 11:18 Ondansetron HCl (zoFRAN 4MG INJ) 4 mg ONCE STAT IVP 03/02/25 10:54 03/02/25 11:00 DC 03/02/25 11:18 Sodium Chloride 1,000 ml @ 1,000 mls/hr Q1H STAT IV 03/02/25 10:54 03/02/25 11:53 DC 03/02/25 11:18 Vital Signs Date Time Temp Pulse Resp B/P (MAP) Pulse Ox O2 Delivery O2 Flow Rate FiO2 03/02/25 12:03 50 18 108/57 100 Room Air* 0 21 03/02/25 10:49 98.2 60 20 116/63 100 Room Air* 0 21 03/02/25 10:43 98.2 66 19 116/77 99 Room Air 0 Medical Decision Making MDM MDM: 44-year-old female with a history of endometriosis, any right oophorectomy, and a hysterectomy coming in complaining of lower abdominal pain. Patient states started like an achy yesterday, and today while she was at work she felt some sharp pain and decided to come to the hospital and be evaluated. Patient also mentioned she has had some nausea and dysuria since Sunday. Denies any fever, chest pain, chest discomfort, shortness a breath, vaginal bleeding, vaginal discharge. Blood work unremarkable. CT scan shows Ill-defined soft tissue hypertrophy at post-hysterectomy site, slightly increased since 07/15/24, concerning for possible recurrence. Spoke to Dr. Negron , OBGYN they performed the hysterectomy, stated to follow up with him in his office on Sunday. Discussed this with the patient. Patient agreed to follow up. Patient will be discharged with the results of CT scan and ultrasound tissue her OBGYN. Differential diagnosis: Urinary tract infection, ovarian torsion, ovarian cysts Rationale: Tests considered and ordered secondary to shared decision making include: Previous outside records reviewed: Old ER visits. Risk of complication and/or morbidity or mortality of patient management: None Medications-Per medication reconciliation Need for hospitalization: Patient does not meet criteria for hospitalization. Need for emergency major/minor surgery: No There are no social concerns with this patient. Prescription drug management Prescriptions will include symptomatic care Patient's prior external medical records from other ER visits were reviewed by me as indicated. Prior testing and results from previous visits were reviewed. Prior tests were taken into account with medical decision making and resource utilization, independent historian/historians were used to obtain complete medical history. I independently interpreted the test that were performed, results were reviewed by me and considered findings on radiology if ordered. Medical management and examination interpretation discussions were had by me with other qualified healthcare professionals as indicated for the patient's care. DX & DISP Disposition: Discharge Departure Impression: Primary Impression: Lower abdominal pain Condition: Stable Additional Instructions: Please follow up with Dr.Cantu thompson on Sunday in his office. Referrals: JONATHON ISBELL MD (PCP) Time of Disposition: 14:03 I have reviewed the case, and I agree with, Diagnosis and Plan SHEFALI KHAN NP Mar 02, 2025 10:58
[2025-03-02 11:16] LABS: IMMATURE GRANULOCYTE ABSOLUTE 0.02 K/uL (0-1); NUCLEATED RED BLOOD CELLS 0.0 % (0.0-0.19); PLATELET COUNT (AUTO) 304 K/uL (130-400); RED BLOOD CELL COUNT(AUTO) 4.08 MIL/uL (4.00-5.50); RED CELL DISTRIBUTION WIDTH 12.1 % (11.0-15.5); WHITE BLOOD COUNT (AUTO) 6.9 K/uL (4.8-10.8)
[2025-03-02] MEDS: FAMOTIDINE 20MG VIAL IV STA (11:18)
[2025-03-02] MEDS: 0.9%NACL 1000ML 1,000 ML IV STA (11:18)
[2025-03-02 11:24] LABS: CREATININE 0.6 mg/dL (0.5-1.0); GLOMERULAR FILTR. RATE CALC 112.0 mL/min (>90); GLUCOSE,RANDOM 92.0 mg/dL (70-105); SODIUM SERUM 137.0 mmol/L (136-145); UREA NITROGEN, BLOOD 12.0 mg/dL (7-18)
[2025-03-02 11:37] LABS: APPEARANCE,URINE CLEAR (CLEAR); GLUCOSE, URINE (UA) NEGATIVE (NEGATIVE); LEUKOCYTE ESTERASE ,URINE NEGATIVE Leu/uL (NEGATIVE); NITRATE,URINE NEGATIVE (NEGATIVE); OCCULT BLOOD,URINE NEGATIVE (NEGATIVE)
[2025-03-02 11:38] LABS: ADD UA MICROSCOPIC NO
--- NOTE | 2025-03-02 12:43 | HMCIMG ---
EXAM: US Pelvis, Complete Transvaginal COMPARISON: US Pelvis, Complete Transvaginal Dated 07/15/24 CLINICAL HISTORY: Left pelvic pain. TECHNIQUE: Transvaginal pelvic ultrasound (complete) with image documentation. FINDINGS: ENDOMETRIUM: An ill-defined mixed echogenicity complex area is seen in the uterus. Possibility of regrowth or recurrence cannot be ruled out. UTERUS/CERVIX: Partial hysterectomy status. RIGHT OVARY: Not visualized (post-oophorectomy status). LEFT OVARY: Normal Doppler flow. No abnormal mass. FREE FLUID: No free fluid. IMPRESSION: 1. Ill-defined mixed echogenicity complex area in the uterus, suspicious for regrowth/recurrence in the setting of partial hysterectomy. Recommend contrast-enhanced MRI of the pelvis for further evaluation. /[place]
--- NOTE | 2025-03-02 13:42 | HMCIMG ---
EXAM: CT Abdomen and Pelvis Without IV Contrast. CLINICAL HISTORY: Left pelvic pain TECHNIQUE: Axial computed tomography images of the abdomen and pelvis without intravenous contrast. CONTRAST: No IV contrast. COMPARISON: CT Abdomen and Pelvis With IV Contrast dated 07/15/2024. FINDINGS: LUNG BASES: The lung bases appear clear. No pleural effusions are seen. LIVER: Liver is enlarged in size, measuring 19.4 cm. No focal lesion is seen. GALLBLADDER AND BILE DUCTS: The gallbladder appears within normal limits. No radioopaque gallstones are seen. No biliary ductal dilatation is evident. PANCREAS: Unremarkable. SPLEEN: Unremarkable. ADRENAL GLANDS: Unremarkable. KIDNEYS, URETERS, AND BLADDER: The kidneys appear within normal limits. There is no hydronephrosis or hydroureter. No urinary calculi are seen. STOMACH AND BOWEL: Unremarkable appearance of the stomach and bowel. No evidence of bowel obstruction. No evidence suggesting enteritis or colitis. APPENDIX: No evidence of acute appendicitis on CT examination. PERITONEUM: No free fluid. No free air. LYMPH NODES: No lymphadenopathy is evident. REPRODUCTIVE: Post partial hysterectomy status. Right ovary is not seen (post oophorectomy status). Left ovary and adnexa appear normal. There is ill-defined soft tissue hypertrophy at the post-hysterectomy site, which has slightly increased compared to the previous scan dated 07/15/24. This may be further characterized with contrast-enhanced MR imaging of the pelvis. VASCULATURE: No evidence of abdominal aortic aneurysm. BONES: No aggressive appearing osseous lesion. No acute osseous pathology evident. IMPRESSION: 1. Ill-defined soft tissue hypertrophy at post-hysterectomy site, slightly increased since 07/15/24, concerning for possible recurrence. Recommend contrast-enhanced MRI of the pelvis for further evaluation. 2. Hepatomegaly with liver span of 19.4 cm. 3. No acute pathology appreciated within the abdomen or pelvis. /[place]
[2025-03-02 14:06] VITALS: BP 113/68; PULSE 53; RESP 20; TEMP 97.9; O2SAT 97
== END 2025-03-02 14:25 | disposition home or self-care (01) ==
LOC: EDH 10:41
DX: R10.30 Lower abdominal pain, unspecified (principal); R11.0 Nausea; R30.0 Dysuria; Z90.710 Acquired absence of both cervix and uterus; Z88.8 Allergy status to other drugs, medicaments and biological substances
CPT/HCPCS: 99285; 74176; 96374; 96361; 76856; 96375; 80048; 85025; 81003; 36415; J1885; J3490; J7030; J2405